=== PATIENT | female | born 1970 | race Caucasian/White ===

== ENCOUNTER → 2023-01-17 | Outpatient (CLI) | payer BC ==
--- NOTE | 2023-01-17 16:09 | Diagnostic Imaging Report ---
HISTORY: Fracture of the right 4th toe TECHNIQUE: 3 views of the right 4th toe COMPARISON: None FINDINGS: There is a mildly laterally displaced oblique fracture of the right 4th proximal phalangeal shaft. No extension to the articular surface is seen. No other fractures are seen. IMPRESSION: 1. Mildly displaced extraarticular fracture of the right 4th toe proximal phalanx. Dictated by: Dictated on workstation # [id number]
== END ==
LOC: LAB FS 08:47
PROVIDERS: ATTEND Nurse Practitioner
DX: S92.511A Displaced fracture of proximal phalanx of right lesser toe(s), initial encounter for closed fracture (principal); X58.XXXA Exposure to other specified factors, initial encounter
CPT/HCPCS: 73660